=== PATIENT | female | born 1980 | race African-American/Black ===

== ENCOUNTER 2017-05-20 16:59 | Emergency (ER) | payer MEDICAID, OTHER ==
[~2017-05-20] VITALS: Ht 165.1 cm; Wt 98.0 kg
[~2017-05-20 16:59] MED LIST: LEVOTHYROXINE
[2017-05-20] MEDS ORDERED: KETOROLAC 30MG/ML VIAL IM ONE (21:45)
[2017-05-20 22:04] VITALS: BP 127/88
== END 2017-05-20 22:41 | disposition home or self-care (01) ==
LOC: ER 21:28
DX: S70.10XA Contusion of unspecified thigh, initial encounter (principal); E05.90 Thyrotoxicosis, unspecified without thyrotoxic crisis or storm; W22.8XXA Striking against or struck by other objects, initial encounter; Y93.89 Activity, other specified; Y92.89 Other specified places as the place of occurrence of the external cause; Y99.8 Other external cause status
CPT/HCPCS: 96372; 99283; J1885

== ENCOUNTER 2017-06-15 15:31 | Emergency (ER) | payer OTHER ==
[~2017-06-15] VITALS: Ht 165.1 cm; Wt 90.0 kg
[2017-06-15] MEDS ORDERED: KETOROLAC 60MG/2ML VIAL IM ONE (18:15)
[2017-06-15 18:44] VITALS: BP 155/79
[2017-06-15 18:45] LABS: CLARITY URINE CLEAR (CLEAR); COLOR URINE YELLOW (YELLOW); KETONES URINE NEGATIVE (NEGATIVE); LEUKOCYTE ESTERASE URINE NEGATIVE (NEGATIVE); NITRITE URINE NEGATIVE (NEGATIVE); OCCULT BLOOD URINE NEGATIVE (NEGATIVE); PH URINE 6.5 (4.5-8.0); PROTEIN URINE NEGATIVE (NEGATIVE); SPECIFIC GRAVITY URINE 1.029 (1.005-1.030); UROBILINOGEN URINE 0.2 E.U./dL (0.2-1.0)
== END 2017-06-15 19:21 | disposition home or self-care (01) ==
LOC: ER 19:15
DX: M54.5 Low back pain (principal); E05.90 Thyrotoxicosis, unspecified without thyrotoxic crisis or storm
CPT/HCPCS: 81003; 81025; 96372; 99283; J1885; Z7610